=== PATIENT | female | born 2000 | race Caucasian/White ===

== ENCOUNTER 2022-06-06 14:44 | Emergency (ER) | payer OTHER ==
[~2022-06-06] VITALS: Ht 154.9 cm; Wt 54.5 kg
[2022-06-06] MEDS: ACETAMINOPHEN 500 MG TABLET PO ONE ×2 (16:05→16:09)
[2022-06-06 16:13] LABS: COVID AG,FIA SOURCE NASOPHARYNGEAL
[2022-06-06 16:29] LABS: INFLUENZA TYPE B NEGATIVE FOR TYPE B (NEGATIVE)
[2022-06-06 16:30] LABS: INFLUENZA TYPE A POSITIVE FOR TYPE A (NEGATIVE)
[2022-06-06 16:43] VITALS: BP 108/75
[2022-06-06] MEDS ORDERED: OSEL75 PO (17:02)
== END 2022-06-06 17:16 | disposition home or self-care (01) ==
LOC: EMS 14:48
DX: J10.1 Influenza due to other identified influenza virus with other respiratory manifestations (principal); Z20.822 Contact with and (suspected) exposure to COVID-19
CPT/HCPCS: 87804; 99283